=== PATIENT | female | born 1995 | race Two or more races ===

== ENCOUNTER 2017-02-10 20:40 | Observation (INO) | payer MEDICAID, OTHER ==
[2017-02-10] MEDS ORDERED: PREN-153 OR (21:52)
== END 2017-02-10 21:40 | disposition home or self-care (01) | DRG 566 ==
LOC: LDRP 20:40
PROVIDERS: ADMIT Obstetrics & Gynecology; ATTEND Obstetrics & Gynecology
DX: O26.893 Other specified pregnancy related conditions, third trimester (principal); M54.9 Dorsalgia, unspecified; R10.9 Unspecified abdominal pain; Z3A.36 36 weeks gestation of pregnancy
CPT/HCPCS: 59025; 81002; G0378